=== PATIENT | male | born 1975 | race Caucasian/White ===

== ENCOUNTER 2023-08-14 13:11 | Outpatient (OUT) | payer MEDICARE, SELFPAY ==
--- NOTE | 2023-08-14 | XR_ITS ---
The [address] [address] Patient Name: RAYSA DALTON MRN: [id number] date: 1975 Sex: M Assigned Patient Location: [facility] Current Patient Location: Accession/Order Number: [id number] Exam Date: 08/14/2023 13:30 Report Date: 08/15/2023 18:23 At the request of: MARY JANE SANCHEZ Procedure: XR ankle RT min 3V EXAM: XR ankle RT min 3V, XR foot RT min 3V HISTORY: RIGHT ANKLE PAIN COMPARISON: None. TECHNIQUE: 3 nonweightbearing views of the right ankle and 3 nonweightbearing views of the right foot were obtained. FINDINGS: Post traumatic deformity of the distal tibia and fibula related to prior fracture. There is severe osteoarthritis at the tibiotalar joint likely posttraumatic. No acute fracture of the ankle is seen. There is moderate osteoarthritis at the first metatarsophalangeal joint. Mild to moderate osteoarthritis is also seen at the tarsometatarsal joints and the metatarsophalangeal joints. Severe osteoarthritis is seen at the interphalangeal joints of the toes. XR/XR ankle RT min 3V IMPRESSION: Moderate to severe polyarticular osteoarthritis. Electronically authenticated by: CAMILLE CONNELL Date: 08/15/2023 18:23
--- NOTE | 2023-08-14 | XR_ITS ---
The [address] [address] Patient Name: RAYSA DALTON MRN: [id number] date: 1975 Sex: M Assigned Patient Location: [facility] Current Patient Location: Accession/Order Number: [id number] Exam Date: 08/14/2023 13:30 Report Date: 08/15/2023 18:23 At the request of: MARY JANE SANCHEZ Procedure: XR foot RT min 3V EXAM: XR ankle RT min 3V, XR foot RT min 3V HISTORY: RIGHT ANKLE PAIN COMPARISON: None. TECHNIQUE: 3 nonweightbearing views of the right ankle and 3 nonweightbearing views of the right foot were obtained. FINDINGS: Post traumatic deformity of the distal tibia and fibula related to prior fracture. There is severe osteoarthritis at the tibiotalar joint likely posttraumatic. No acute fracture of the ankle is seen. There is moderate osteoarthritis at the first metatarsophalangeal joint. Mild to moderate osteoarthritis is also seen at the tarsometatarsal joints and the metatarsophalangeal joints. Severe osteoarthritis is seen at the interphalangeal joints of the toes. XR/XR foot RT min 3V IMPRESSION: Moderate to severe polyarticular osteoarthritis. Electronically authenticated by: CAMILLE CONNELL Date: 08/15/2023 18:23
== END 2023-08-14 13:12 | disposition home or self-care (01) ==
LOC: RAD 13:13
PROVIDERS: PCP Family Medicine; Visit Provider Podiatrist Foot & Ankle Surgery
DX: M79.671 Pain in right foot (principal); M25.571 Pain in right ankle and joints of right foot; M15.9 Polyosteoarthritis, unspecified
CPT/HCPCS: 73610; 73630

== ENCOUNTER 2023-09-03 12:27 | Outpatient (OUT) | payer MEDICARE, SELFPAY ==
--- NOTE | 2023-09-03 13:24 | CT_ITS ---
[address] [address] Patient Name: RAYSA DALTON MRN: [id number] date: 1975 Sex: M Assigned Patient Location: [facility] Current Patient Location: [facility] Accession/Order Number: [id number] Exam Date: 09/03/2023 13:48 Report Date: 09/03/2023 15:43 At the request of: MARY JANE SANCHEZ Procedure: CT ankle RT wo con EXAMINATION: CT ankle RT wo con HISTORY: Right Ankle Post Traumatic Degenerative Joint Disease COMPARISON: No relevant comparison available. TECHNIQUE: Multi-planar CT images were created without IV contrast. Dose reduction techniques were achieved by using automated exposure control and/or adjustment of mA and/or kV according to patient size and/or use of iterative reconstruction technique. FINDINGS: BONES: No acute fracture or dislocation. Moderate to severe degenerative changes of the knee with [id number] articulation of the lateral compartment and near blro-ey-yzev articulation of the medial compartment. Evidence of remote healed proximal tibial fracture involving the lateral tibial plafond as well as the proximal fibular head. Severe degenerative changes of the tibiotalar joint with subchondral erosions. Contour deformity of the distal tibia and fibula consistent with remote healed fracture SOFT TISSUES: Negative. No visible soft tissue swelling. EFFUSION: None visible. OTHER: Negative. CT/CT ankle RT wo con IMPRESSION: Posttraumatic and degenerative changes of the knee and ankle as detailed above Electronically authenticated by: LURDES RING Date: 09/03/2023 15:43
--- NOTE | 2023-09-03 13:52 | CA_ITS ---
The [facility] Test Date: 2023-09-03 Pat Name: Sage Whaley Department: Room: - Gender: Male [employer] Man: Grecia Doss : 1975 Requested By: MARY JANE SANCHEZ Order Number: [id number] Reading MD: LILLIE MACEDO Interpretive Statements Biphasic doppler waveforms. PVR waveforms with normal upstroke, amplitude and dicrotic notch Right: - no significant pressure gradient between cuffs - normal HANS Left: - no significant pressure gradient between cuffs - normal HANS Impression: Normal arterial evaluation of the lower extremities without hemodynamic impairment of the B/L lower extremities at rest. (right HANS 1.12, left HANS 1.07) Electronically Signed On 09-04-2023 7:15:40 EST by LILLIE MACEDO
== END 2023-09-03 12:28 | disposition home or self-care (01) ==
LOC: CARD 12:27
PROVIDERS: PCP Family Medicine; Visit Provider Podiatrist Foot & Ankle Surgery
DX: M19.071 Primary osteoarthritis, right ankle and foot (principal); Q66.11 Congenital talipes calcaneovarus, right foot; M87.9 Osteonecrosis, unspecified; I73.9 Peripheral vascular disease, unspecified
CPT/HCPCS: 73700; 93923